=== PATIENT | female | born 1945 | race Caucasian/White ===

== ENCOUNTER 2018-02-05 12:54 | Inpatient (IN) | payer OTHER ==
[~2018-02-05] VITALS: Ht 156.2 cm; Wt 94.5 kg
[2018-02-05 13:48] LABS: HEMATOCRIT 35.6 % (36.0-46.0); HEMOGLOBIN 13.1 G/DL (11.9-15.5); MCH 31.5 PG (29.0-34.0); MCHC 36.8 G/DL (30.0-36.0); MCV 85.6 FL (83-99); PLATELET COUNT 209 K/uL (156-360); RBC DIS.WIDTH-CV 12.1 % (11.8-14.6); RED BLOOD COUNT 4.16 M/uL (3.80-5.20); WHITE BLOOD COUNT 9.8 K/uL (4.1-10.2)
[2018-02-05 13:57] LABS: ALBUMIN 3.9 g/dL (3.2-4.8); CHLORIDE 82 mEq/L (99-109); POTASSIUM 3.5 mEq/L (3.7-5.4); SODIUM 123 mEq/L (136-147)
[2018-02-05 13:59] LABS: GLUCOSE 103 mg/dL (70-99)
[2018-02-05 14:01] LABS: TOTAL BILIRUBIN 1.1 mg/dL (0.0-1.0)
[2018-02-05 14:03] LABS: ALKALINE PHOSPHATASE 101 IU/L (3-129); CREATININE 0.8 mg/dL (0.6-1.3); GFR ESTIMATE (CALCULATED) > 59 mL/min/
[2018-02-05 14:04] LABS: UREA NITROGEN (BUN) 9 mg/dL (9-23)
[2018-02-05 14:05] LABS: AST (GOT) 33 IU/L (2-34)
[2018-02-05 14:06] LABS: ALT (GPT) 36 IU/L (3-49); LIPASE 16 U/L (1.0-51.0)
[2018-02-05 14:10] LABS: TROP-I INTERPRETATION NEGATIVE; TROPONIN-I 0.05 ng/mL (0.0-0.30)
[2018-02-05 15:14] LABS: APPEARANCE CLEAR ((CLEAR)); BILIRUBIN NEGATIVE; BLOOD SMALL; COLOR YELLOW ((YELLOW)); GLUCOSE (STRIP) NEGATIVE; KETONES 5; LEUKOCYTES NEGATIVE; NITRITE NEGATIVE; PROTEIN (STRIP) NEGATIVE; SPECIFIC GRAVITY 1.005 (1.000-1.030)
[2018-02-05] MEDS ORDERED: COUMADIN1 MG PO (15:16)
[2018-02-05] MEDS ORDERED: PRAVACHOL20 MG PO (15:16)
[2018-02-05] MEDS ORDERED: COUMADIN5 MG PO (15:16)
[2018-02-05] MEDS ORDERED: LOPRESSOR25 MG PO (15:17)
[2018-02-05] MEDS ORDERED: HYDROCHLOROTH12.5 M3 PO (15:17)
[2018-02-05] MEDS ORDERED: ADULT ASPIRIN81 MG PO (15:17)
[2018-02-05 15:24] LABS: BACTERIA NONE SEEN /HPF; EPITHELIAL CELLS RARE /HPF; MUCUS TRACE /LPF; RED BLOOD CELLS 0-5 /HPF (0-5); WHITE BLOOD CELLS 0-5 /HPF (0-5)
[2018-02-05 16:09] LABS: INTER. NORMALIZED RATIO 3.5
[2018-02-05 17:03] VITALS: BP 185/87
[2018-02-05 18:27] LABS: CHLORIDE 87 MEQ/L (99-109); CREATININE 0.7 MG/DL (0.6-1.3); GFR ESTIMATE (CALCULATED) > 59 mL/min/; GLUCOSE 151 mg/dL (70-99); POTASSIUM 3.2 MEQ/L (3.7-5.4); SODIUM 122 MEQ/L (136-147); UREA NITROGEN (BUN) 9 mg/dL (9-23)
[2018-02-05 19:36] VITALS: BP 159/73
[2018-02-05 20:31] LABS: TROP-I INTERPRETATION NEGATIVE; TROPONIN-I 0.04 ng/mL (0.0-0.30)
[2018-02-05 23:38] VITALS: BP 161/77
[2018-02-06 01:30] LABS: TROP-I INTERPRETATION NEGATIVE; TROPONIN-I 0.04 ng/mL (0.0-0.30)
[2018-02-06 06:01] LABS: BASOPHIL (%) 0.2 % (0-1); EOSINOPHIL (%) 0.1 % (0-5); HEMATOCRIT 37.8 % (36.0-46.0); HEMOGLOBIN 12.9 G/DL (11.9-15.5); IMMATURE GRANULOCYTE (%) 0.6 % (0.0-0.7); LYMPHOCYTE (%) 8.6 % (15-42); LYMPHOCYTE COUNT 0.7 K/uL (1.0-2.8); MCH 29.9 PG (29.0-34.0); MCHC 34.1 G/DL (30.0-36.0); MCV 87.5 FL (83-99); MONOCYTE (%) 7.1 % (3-12); MONOCYTE COUNT 0.6 K/uL (0-0.8); NEUTROPHIL (%) 83.4 % (45-76); NEUTROPHIL COUNT 7.2 K/uL (1.8-6.4); PLATELET COUNT 228 K/uL (156-360); RBC DIS.WIDTH-CV 12.2 % (11.8-14.6); RBC DIS.WIDTH-SD 39.6 % (39-53); RED BLOOD COUNT 4.32 M/uL (3.80-5.20); WHITE BLOOD COUNT 8.6 K/uL (4.1-10.2)
[2018-02-06 06:17] LABS: INTER. NORMALIZED RATIO 3.7
[2018-02-06 06:23] LABS: TROP-I INTERPRETATION NEGATIVE; TROPONIN-I 0.03 ng/mL (0.0-0.30)
[2018-02-06 06:29] LABS: CHLORIDE 92 MEQ/L (99-109); CREATININE 0.8 MG/DL (0.6-1.3); GFR ESTIMATE (CALCULATED) > 59 mL/min/; GLUCOSE 145 mg/dL (70-99); POTASSIUM 3.5 MEQ/L (3.7-5.4); SODIUM 131 MEQ/L (136-147); UREA NITROGEN (BUN) 7 mg/dL (9-23)
[2018-02-06 07:21] VITALS: BP 126/66
[2018-02-06 08:53] LABS: MAGNESIUM 1.7 mg/dl (1.3-2.7)
[2018-02-06 11:06] VITALS: BP 134/77
[2018-02-06 13:28] LABS: C DIFF TOXIN NEGATIVE (NEGATIVE)
[2018-02-06 15:17] VITALS: BP 159/68
[2018-02-06 19:13] VITALS: BP 118/58
[2018-02-07 00:52] VITALS: BP 123/59
[2018-02-07 03:32] VITALS: BP 118/56
[2018-02-07 06:17] LABS: HEMATOCRIT 33.3 % (36.0-46.0); HEMOGLOBIN 11.5 G/DL (11.9-15.5); MCH 30.5 PG (29.0-34.0); MCHC 34.5 G/DL (30.0-36.0); MCV 88.3 FL (83-99); NRBC (%) 0.2 /100 WBC (0-0); PLATELET COUNT 226 K/uL (156-360); RBC DIS.WIDTH-CV 12.9 % (11.8-14.6); RBC DIS.WIDTH-SD 41.5 % (39-53); RED BLOOD COUNT 3.77 M/uL (3.80-5.20); WHITE BLOOD COUNT 9.2 K/uL (4.1-10.2)
[2018-02-07 06:31] LABS: INTER. NORMALIZED RATIO 3.8
[2018-02-07 06:50] LABS: CHLORIDE 95 MEQ/L (99-109); GFR ESTIMATE (CALCULATED) 58 mL/min/; GLUCOSE 114 mg/dL (70-99); POTASSIUM 3.9 MEQ/L (3.7-5.4); SODIUM 130 MEQ/L (136-147); UREA NITROGEN (BUN) 13 mg/dL (9-23)
[2018-02-07 08:06] VITALS: BP 138/63
[2018-02-07 12:10] VITALS: BP 137/63
[2018-02-07 16:01] VITALS: BP 140/73
[2018-02-07 20:23] VITALS: BP 159/7
[2018-02-08 00:45] VITALS: BP 166/72
[2018-02-08 04:54] VITALS: BP 171/74
[2018-02-08 05:43] LABS: HEMATOCRIT 33.4 % (36.0-46.0); HEMOGLOBIN 11.1 G/DL (11.9-15.5); MCH 29.7 PG (29.0-34.0); MCHC 33.2 G/DL (30.0-36.0); MCV 89.3 FL (83-99); PLATELET COUNT 208 K/uL (156-360); RBC DIS.WIDTH-CV 12.8 % (11.8-14.6); RBC DIS.WIDTH-SD 41.8 % (39-53); RED BLOOD COUNT 3.74 M/uL (3.80-5.20); WHITE BLOOD COUNT 8.5 K/uL (4.1-10.2)
[2018-02-08 05:50] LABS: INTER. NORMALIZED RATIO 2.2
[2018-02-08 06:10] LABS: CHLORIDE 93 MEQ/L (99-109); CREATININE 0.8 MG/DL (0.6-1.3); GFR ESTIMATE (CALCULATED) > 59 mL/min/; GLUCOSE 118 mg/dL (70-99); POTASSIUM 3.6 MEQ/L (3.7-5.4); SODIUM 128 MEQ/L (136-147); UREA NITROGEN (BUN) 13 mg/dL (9-23)
[2018-02-08 07:21] VITALS: BP 178/69
[2018-02-08 12:02] VITALS: BP 135/64
[2018-02-08 16:39] VITALS: BP 141/69
[2018-02-08 19:51] VITALS: BP 157/71
[2018-02-09 00:25] VITALS: BP 144/65
[2018-02-09 04:36] VITALS: BP 150/69
[2018-02-09 05:59] LABS: HEMATOCRIT 32.8 % (36.0-46.0); HEMOGLOBIN 10.8 G/DL (11.9-15.5); MCH 30.1 PG (29.0-34.0); MCHC 32.9 G/DL (30.0-36.0); MCV 91.4 FL (83-99); PLATELET COUNT 202 K/uL (156-360); RBC DIS.WIDTH-CV 13.2 % (11.8-14.6); RBC DIS.WIDTH-SD 44.8 % (39-53); RED BLOOD COUNT 3.59 M/uL (3.80-5.20); WHITE BLOOD COUNT 7.9 K/uL (4.1-10.2)
[2018-02-09 06:01] LABS: INTER. NORMALIZED RATIO 1.8
[2018-02-09 06:36] LABS: CHLORIDE 101 MEQ/L (99-109); CREATININE 0.8 MG/DL (0.6-1.3); GFR ESTIMATE (CALCULATED) > 59 mL/min/; GLUCOSE 118 mg/dL (70-99); POTASSIUM 4.1 MEQ/L (3.7-5.4); SODIUM 136 MEQ/L (136-147); UREA NITROGEN (BUN) 14 mg/dL (9-23)
[2018-02-09 08:09] VITALS: BP 125/59
[2018-02-09] MEDS ORDERED: SORE THROAT SP177 M1 MM (10:37)
[2018-02-09] MEDS ORDERED: MUCINEX600 MG PO (10:37)
[2018-02-09] MEDS ORDERED: DOXYCYCLINE HY100 M3 PO (10:37)
[2018-02-09] MEDS ORDERED: FLONASE16 G1 BOTH NARES (10:37)
[2018-02-09] MEDS ORDERED: LIDOCARE1 EACH TP (10:37)
[2018-02-09] MEDS ORDERED: COMBIVENT RESPIM4 GM IH (10:50)
[2018-02-09] MEDS ORDERED: AMLODIPINE BESYL5 MG PO (10:50)
[2018-02-09] MEDS ORDERED: LEVAQUIN750 MG PO (11:56)
== END 2018-02-09 12:59 | disposition home or self-care (01) | DRG 309 ==
LOC: EME 12:54 → EDOF 15:19 → 5SOUTH 15:19 → ENRESERV 15:21 → 5SOUTH 16:59
PROVIDERS: Hospitalist; Internal Medicine; Internal Medicine Cardiovascular Disease; Nurse Practitioner Family
DX: I48.0 Paroxysmal atrial fibrillation (principal); I10 Essential (primary) hypertension; R19.7 Diarrhea, unspecified; E87.1 Hypo-osmolality and hyponatremia; E66.01 Morbid (severe) obesity due to excess calories; E78.5 Hyperlipidemia, unspecified; E87.2 Acidosis; Z79.01 Long term (current) use of anticoagulants; Z79.82 Long term (current) use of aspirin; E66.9 Obesity, unspecified; I25.10 Atherosclerotic heart disease of native coronary artery without angina pectoris; Z91.09 Other allergy status, other than to drugs and biological substances; Z95.2 Presence of prosthetic heart valve; Z68.38 Body mass index [BMI] 38.0-38.9, adult; I11.9 Hypertensive heart disease without heart failure; J20.9 Acute bronchitis, unspecified; J84.10 Pulmonary fibrosis, unspecified; J01.90 Acute sinusitis, unspecified; J32.9 Chronic sinusitis, unspecified; E87.6 Hypokalemia; Z79.899 Other long term (current) drug therapy
CPT/HCPCS: 70486; 71046; 71250; 80048; 80048 91; 80053; 81003; 82272; 83605; 83690; 83735; 83930; 83935; 84295; 84300; 84443; 84484; 85025; 85027; 85610; 87040; 87449; 87493; 93005; 93306; 94640; 94640 76; 94799; 99202; 99281; 99285; J7030; J7042; J7512